=== PATIENT | male | born 1955 | race Caucasian/White ===

== ENCOUNTER → 2017-06-15 | Outpatient (CLI) | payer OTHER ==
[~2017-06-15] VITALS: Ht 182.9 cm; Wt 86.6 kg
[~2017-06-15] MED LIST: ADULT LOW DOSE81 MG; AMBEREN; ATIVAN1 MG PO; HYDROXYZINE HCL50 MG; NEORAL100 MG PO; NORVASC 5 MG TAB5 MG PO; PEGASYS180 MCG/1 IM; REBETOL200 MG PO; URSODIOL300 MG; VITAMIN D3400 UNIT; [UNRECOGNIZED DRUG - CODE] IM; [UNRECOGNIZED DRUG - OTHER] PO
[2017-06-15 09:53] LABS: HEMOGLOBIN 13.9 gm/dL (14.0-18.0); MCH 29.5 pg (26.0-34.0); MCHC 33.9 g/dL (28.0-37.0); MCV 87.1 fL (80.0-100.0); MPV 8.3 fl. (7.2-11.1); NUCLEATED RBCS 0 /100WBC; PLATELET COUNT* 295 thou/uL (150-400); RDW-CV 13.7 % (10.5-14.5); WBC 12.7 thou/uL (4.0-11.0)
[2017-06-15 09:59] VITALS: BP 170/96
[2017-06-15 10:01] LABS: APTT 26.4 Seconds (25.0-31.3); INR 0.9; PROTIME 9.2 Seconds (9.20-11.50)
[2017-06-15 10:05] VITALS: BP 170/96
[2017-06-15 10:14] LABS: ABSOLUTE EOSINOPHILS 0.1 thou/uL (0.0-0.7); ABSOLUTE MONOCYTES 0.6 thou/uL (0.0-1.2); ABSOLUTE NEUTROPHILS 9.9 thou/uL (1.6-8.1); PLATELET ESTIMATE ADEQUATE
[2017-06-15 10:15] LABS: ANISOCYTOSIS 1+; POIKILOCYTOSIS 1+
[2017-06-15 11:15] VITALS: BP 139/82
[2017-06-15 11:31] VITALS: BP 135/88
[2017-06-15 11:47] VITALS: BP 134/85
--- NOTE | 2017-06-15 13:29 | 2DMMODE ---
[place] [address] 2 D/M-MODE ECHOCARDIOGRAM Name: ABHINAVGREG J Room: [facility]#: [id number] Admission: 06/15/17 Attend Phys: Johanna Faulkner, Discharge: Date of : 57 Date of Service: 06/15/17 1329 Report #: [id number] THIS REPORT FOR: //name// APPROVED REPORT Study performed: 06/15/2017 08:57:53 EXAM: Comprehensive 2D, Doppler, and color-flow Echocardiogram Patient Location: Out-Patient Status: routine BSA: 2.08 HR: 68 bpm BP: 152/92 mmHg Rhythm: NSR Other Information Study Quality: Good Indications Pre-Op Chemo 2D Dimensions IVSd: 11.56 (7-11mm) LVOT Diam: 23.54 (18-24mm) LVDd: 48.79 mm PWd: 9.59 (7-11mm) Ascending Ao: 38.27 (22-36mm) LVDs: 38.62 (25-40mm) Aortic Root: 31.43 mm Volumes Left Atrial Volume (Systole) LA ESV Index: 38.30 mL/m2 Aortic Valve AoV Peak Brennan.: 1.50 m/s AO Peak Gr.: 9.04 mmHg LVOT Max P.74 mmHg AO Mean Gr.: 4.50 mmHg LVOT Mean P.91 mmHg LVOT Max V: 1.20 m/s AO V2 VTI: 29.91 cm LVOT Mean V: 0.79 m/s PHILIP (VTI): 3.37 cm2 LVOT V1 VTI: 23.18 cm Mitral Valve E/A Ratio: 1.05 MV Decel. Time: 256.87 [place] [address] 2 D/M-MODE ECHOCARDIOGRAM Name: GREG LA [id number] Admission: 06/15/17 Attend Phys: Johanna Faulkner, Discharge: Date of : 57 Date of Service: 06/15/17 1329 Report #: [id number] MV E Max Brennan.: 0.66 m/s MV PHT: 74.49 ms MVA (PHT): 2.95 cm2 TDI E/Lateral E': 6.00 E/Medial E': 8.25 Medial E' Brennan.: 0.08 m/s Lateral E' Brennan.: 0.11 m/s Pulmonary Valve PV Peak Brennan.: 1.15 m/s PV Peak Gr.: 5.31 mmHg Tricuspid Valve TR Peak Gr.: 29.98 mmHg RVSP: 34.00 mmHg Left Ventricle The left ventricle is normal size. There is normal LV segmental wall motion. There is normal left ventricular wall thickness. Left ventricular systolic function is normal. The left ventricular ejection fraction is within the normal range. LVEF is 55-60%. The left ventricular diastolic function is normal. Right Ventricle The right ventricle is normal size. The right ventricular systolic function is normal. Atria Left atrium is mildly dilated. The right atrium size is normal. Aortic Valve The aortic valve is normal in structure. No aortic regurgitation is present. There is no aortic valvular stenosis. Mitral Valve The mitral valve is normal in structure. Trace mitral regurgitation. No evidence of mitral valve stenosis. Tricuspid Valve The tricuspid valve is normal in structure. Trace tricuspid regurgitation. The RVSP is 30-35 mmHg. Pulmonic Valve The pulmonary valve is normal in structure. Trace [place]mon[place] [address] 2 D/M-MODE ECHOCARDIOGRAM Name: ABHINAVGREG J Room: [facility]#: [id number] Admission: 06/15/17 Attend Phys: Johanna Faulkner, Discharge: Date of : 57 Date of Service: 06/15/17 1329 Report #: [id number] Great Vessels Aortic root is mildly dilated. IVC is normal in size and collapses with >50% inspiration Pericardium There is no pericardial effusion. <Conclusion> LVEF is 55-60%. Left atrium is mildly dilated. Aortic root is mildly dilated. <ELECTRONICALLY SIGNED> By: Drew Arellano MD, FACC 06/15/17 1329 28 Drew Arellano MD, FAC /INF
--- NOTE | 2017-06-19 15:55 | S ---
[place] [address] SURGICAL PATH RPT PROCEDURE Name: GREG SMITH [id number] Admission: 06/15/17 Date of : 57 Discharge: Report #: [id number] Path Case #: [id number] PATHOLOGY REPORT COLLECTION DATE: 06/15/2017 RECEIVED DATE: 06/15/2017 SUBMITTING PHYS: Dr. Akshat Kauffman OTHER PHYS: Dr. Johanna Romano SPECIMEN(S) RECEIVED: A.Bone marrow, biopsy B.Bone marrow, clot and/or particle prep C.Bone marrow, aspirate smears D.Peripheral smear * * * * * * * * * * * * FINAL DIAGNOSIS: Bone marrow aspirate, biopsy, cell clot and peripheral blood: - Peripheral blood with no diagnostic abnormalities. - Normocellular to mildly hypocellular bone marrow with trilineage hematopoiesis, mild dyspoiesis and small monoclonal plasma cell population (5-10% lambda restricted plasma cells by immunohistochemical stains). See comment. - No evidence of B cell lymphoma by flow cytometry or light microscopy. COMMENT: Overall, the bone marrow is normocellular to mildly hypocellular for the patient's age with trilineage hematopoiesis, mild dyspoiesis and a small monoclonal plasma cell population. There are 5-10% lambda restricted plasma cells by immunohistochemical staining. Correlation with clinical history, additional laboratory data and radiographic findings is required to determine the extent of the disease process. 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 The current monoclonal plasma cells are lambda restricted. The dyspoiesis is mild and does not meet the morphologic criteria for myelodysplasia. Correlation with clinical history, additional laboratory data and cytogenetics is recommended. The case was discussed with Dr. Johanna Faulkner on 06/19/17 at approximately 1:00 PM. (CLW:db; 06/19/2017) PATHOLOGIST: Suzanna Salazar M.D. REPORT ELECTRONICALLY SIGNED BY: Suzanna Salazar M.D. DATE/TIME: 06/19/2017 15:54 [place] [address] SURGICAL PATH RPT PROCEDURE Name: GREG SMITH Essence Room: [facility]#: [id number] Admission: 06/15/17 Date of : 57 Discharge: Report #: [id number] Path Case #: [id number] * * * * * * * * * * * * MICROSCOPIC DESCRIPTION: CBC Data (06/15/17): WBC 12,700 /uL, RBC 4.70, hemoglobin 13.9 g/dL, hematocrit 41.0%, MCV 87.1 fL, MCH 29.5 pg, MCHC 33.9 g/dL, RDW 13.7%, and platelet count 295,000 /uL. White blood cell differential: segs 78%, lymphs 16%, monos 5%, and eos 1%. Peripheral Blood Smear: Cytomorphological examination of the Chamberlain's stained peripheral blood smear confirms the provided data. Red blood cells are normocytic and are without significant anisopoikilocytosis. White blood cells are predominantly segmented neutrophils and are without significant dyspoiesis or significant left shift. Lymphocytes are predominantly small, round, and mature appearing with condensed chromatin and scant cytoplasm with admixed large granular lymphocytes and rare reactive appearing lymphocytes. On scanning, no markedly atypical lymphoid cells are seen. Monocytes are mature. Platelets are adequate in number and mainly normal in morphology with rare larger platelets noted. Aspirate Smears: Cytomorphological examination of the Chamberlain's stained aspirate smears show no intact spicule or megakaryocytes present. Scattered hematopoietic regenerator cells are identified; therefore, this most likely represents a hemodilute sample. The myeloid to erythroid ratio is 9.5 to 1. Full myeloid maturation is identified and is mildly dyspoietic with abnormal cytoplasmic granularity. Erythroid maturation is mildly dyserythropoietic with irregular nuclear contours. In a 500 cell differential there are 1% blasts (no Ab rods are seen), 76% more differentiated myeloids (predominantly segmented neutrophils), 8% erythroid precursors, 14% lymphocytes and 1% plasma cells. No megakaryocytes are identified on scanning. No lymphoid aggregates or markedly atypical lymphoid cells are seen. Plasma cells are without marked atypia. Iron stain of the aspirate smear shows 0/4+ iron positivity. Again, no spicules are present. No ringed sideroblasts are identified. Core Biopsy and Cell Clot: The decalcified bone marrow core biopsy is adequate. The bone marrow is normocellular to mildly hypocellular with an overall cellularity of approximately 30%. The myeloid to erythroid ratio is 2:1. Myeloid and erythroid maturation are mildly dyspoietic. Megakaryocytes are normal in number and both normal and abnormal in morphology. No lymphoid aggregates or markedly atypical lymphoid cells are seen. Bony trabeculae and blood vessels are unremarkable. The cell clot has rare spicules present that are similar in cellularity and differential morphology as previously described. Iron stain of the cell clot (Block B1 and B3) show 2/4+ iron positivity with rare spicules present. To further evaluate the plasma cells and to identify cells in a tissue architectural context, properly controlled immunohistochemical stains are performed. [address] [place] [address] SURGICAL PATH RPT PROCEDURE Name: GREG SMITH Room: [facility]#: [id number] Admission: 06/15/17 Date of : 57 Discharge: Report #: [id number] Path Case #: [id number] Block A1 PAX5 - Stains rare scattered small B cells CD20 - Stains rare scattered small B cells CD3 - Highlights admixed T cells CD138 - Stains the plasma cells that comprise approximately 10% of the marrow cellularity Waterproof and lambda in situ hybridization - Plasma cells are predominantly lambda positive with rare kappa positive cells present Block B3 CD138 - The small spicules contain scattered plasma cells Waterproof and lambda in situ hybridization - Plasma cells appear predominantly lambda positive Flow Cytometry: Flow cytometric immunophenotypic analysis was performed at [email or web address]. The diagnosis is "1 - monotypic plasma cells identified, 0.4% of analyzed events, 2 - no significant immunophenotypic abnormalities of T cells, B cells or myeloid cells, 3 - no evidence of increased blasts." There are 4.7% lymphocytes. Of the lymphocytes, there are 85% T cells with a CD4/CD8 ratio of 2.2 and no aberrant T cell antigen expression and 5% polyclonal mature B cells (kappa lambda ratio of 1.6). There are 1.1% CD34 positive cells (blasts). Plasma cells comprise 0.4% of cells and are monotypic with expression of CD38, CD138, lambda light chains, CD117 and CD20 (dim, partial). Flow cytometric analysis of bone marrow shows evidence of monotypic plasma cells (0.4% of analyzed events). Please see separate flow cytometry report from [email or web address] ([id number]). Cytogenetics: Cytogenetic chromosomal analysis is pending at [email or web address] ([id number]). GROSS PATHOLOGY: A. Received in 10% formalin labeled "Greg Smith core," are 2 needle cores of pierre bone, ranging from 0.2 to 0.9 cm in length and 0.2 cm in diameter. The specimen is submitted entirely in cassette A1, following decalcification. B. Received in 10% formalin labeled "Greg Smith clot," is blood coagulum, measuring 4.2 x 1.8 x 1.7 cm in aggregate dimensions. The specimen is submitted entirely in cassette B1 through B6. (TSD; 06/15/2017) CLINICAL HISTORY: 62 year old man with recent diagnosis of lymphoma. This is a staging marrow. INITIAL CPT CODE(S): A; 59874, 89379, 93563, 58443, 66699, 89816, 07517, 93873 B; 57537, 56140, 77696, 84401, [address]1980, [address] [place] [address] SURGICAL PATH RPT PROCEDURE Name: GREG SMITH Room: [facility] Joseph#: [id number] Admission: 06/15/17 Date of : 57 Discharge: Report #: [id number] Path Case #: [id number] C; [id number], [id number] D; [id number] Professional services performed by [facility] at [facility] [address], [place] [address] Technical services performed by [facility] at [address] [place] [address], [facility] [address], [place] [address]. [facility] [address] [place] [address] PHONE: [phone] DIRECTOR: River Urias M.D. * * * END OF REPORT * * *
== END | disposition home or self-care (01) ==
LOC: M.CRD 08:31
PROVIDERS: Radiology Diagnostic Radiology
DX: I08.3 Combined rheumatic disorders of mitral, aortic and tricuspid valves (principal); D47.2 Monoclonal gammopathy; I77.812 Thoracoabdominal aortic ectasia; D70.4 Cyclic neutropenia; I10 Essential (primary) hypertension; Z94.4 Liver transplant status; Z98.890 Other specified postprocedural states; F17.210 Nicotine dependence, cigarettes, uncomplicated; Z79.899 Other long term (current) drug therapy; Z79.82 Long term (current) use of aspirin

== ENCOUNTER → 2017-10-16 | Outpatient (CLI) | payer OTHER ==
--- NOTE | 2017-10-15 11:30 | NUR ---
PT HERE TO BY HAVE BLOOD DRAWN FOR TYPE AND CROSS MATCH TO RECEIVE BLOOD TRANSFUSION TOMORROW. LEFT CHEST PORTACATH ACCESSED UPON ARRIVAL TO LAB. LAB STAFF ESCORTED PT TO ME TO HAVE BLOOD DRAWN FROM PORT. PORT WITH BRISK BLOOD RETURN, FLUSHED EASILY. SITE WNL. LABS OBTAINED EASILY VIA PORT. FLUSHED WITH 20 ML NORMAL SALINE POST LAB DRAW AND PACKED WITH HEPARIN LOCK FLUSH OF 500 UNITS PER 5ML. PT LEFT VIA AMBULATORY WITH INDEPENDENT, STEADY GAIT, ESCORTED BY FEMALE.
[~2017-10-16] VITALS: Ht 182.9 cm; Wt 84.4 kg
[2017-10-16 08:31] VITALS: BP 112/65; BP 118/70; BP 124/74; BP 134/74
[2017-10-16 11:39] VITALS: BP 128/71; BP 130/76; BP 134/74; BP 139/70
--- NOTE | 2017-10-16 13:45 | NUR ---
Pt ambulated into PACU for blood transfusion at 0800. Pt had port-a-cath in left chest single luman already accessed. Dressing was dry and intact. Flushed port easily and had brisk blood return. Pt was T&S yesterday. Pre-med of Benadryl 25mg and Tylenol 650mg given PO prior to transfusion. Blood (first unit) was started at 0800 and completed at 1118. Lasix 20mg was given IVP at 1138. Second unit of blood was started at 1140 and completed at 1317. Discharge instructions were given to patient and his . Pt port was Heprin packed and de-assessed at 1332. Pt ambulated out for home at 1338. He had no s/sx of reation to blood transfusion.
== END ==
LOC: M.INFUS 06:16
DX: C83.38 Diffuse large B-cell lymphoma, lymph nodes of multiple sites (principal)

== ENCOUNTER → 2017-10-30 | Outpatient (CLI) | payer OTHER ==
--- NOTE | 2017-10-29 15:45 | NUR ---
PATIENT ARRIVAL TO LAB FOR TYPE AND SCREEN LAB DRAW FOR TOMORROWS BLOOD TRANSFUSION. LEFT CHEST PORTACATH ALREADY ACCESSED WHEN PATIENT ARRIVED AND DRESSING C/D/I. BRISK BLOOD RETURN OBTAINED FROM PORT AND PORT FLUSHES WELL. PORT FLUSHED WITH NS 20MLS FOLLOWED BY HEPARIN SOLUTION 5MLS OF 100 UNIT/ML SOLUTION. PATIENT THEN DEPARTS FOR HOME.
[2017-10-30 08:43] VITALS: BP 119/59; BP 125/65; BP 133/69
--- NOTE | 2017-10-30 11:16 | NUR ---
ARRIVED PER WHEECHAIR. TRANSFERED SELF TO RECLINER. MADE COMFOTABLE WITH PILLOW AND WARM BLANKET. LEFT PORT A CATH ALREADY ACCESSED. PORT CHECKED FOR PATENCY. GOOD BRISK BLOOD RETURN NOTED AND FLUSHED WITH EASE. PREMED PER PORDER. INFUSION COMPLETED AND TOLERATED WELL. PORT FLUSHED AND LEFT ACCESSED FOR USE [facility] AT [facility]. DENIES QUESTIONS OR NEEDS AT DISCHARGE.
== END ==
LOC: M.INFUS 04:47 → M.LAB 08:30 → M.INFUS 09:30
DX: C83.30 Diffuse large B-cell lymphoma, unspecified site (principal)